=== PATIENT | female | born 1970 | race Asian ===

== ENCOUNTER 2021-01-06 11:08 | Observation (INO) ==
[2021-01-06] MEDS ORDERED: Clindamycin 900 MG/D5W BAG IVPB ONE (12:00)
[2021-01-06] MEDS ORDERED: oxyCODONE SR 10 mg TAB ONE (12:10)
[2021-01-06] MEDS ORDERED: Ondansetron 4 mg VIAL 2 MG/ML 2 ml VIAL ONE ×2 (12:10→15:45)
[2021-01-06] MEDS ORDERED: Lidocaine 1% VIAL 10 MG/ML VIAL ONE (12:37)
[2021-01-06] MEDS ORDERED: Heparin 2 UNITS/ML IVPREMIX 2,000 UNIT/1,000 ML BAG IV ONE (12:38)
[2021-01-06] MEDS ORDERED: Iohexol 350 (CONTRAST) 200 ML MDV IV ONE (13:01)
[2021-01-06] MEDS ORDERED: Heparin 2 UNITS/ML IVPREMIX 1,000 UNIT/500 ML BAG IV ONE (13:01)
[2021-01-06] MEDS ORDERED: nitroGLYCERIN DRIP 25,000 MCG/250 ML BTL ONE (13:04)
[2021-01-06] MEDS ORDERED: fentaNYL 250 mcg/5 ml 50 MCG/ML 5 ml VIAL (250 MCG) ONE (13:04)
[2021-01-06] MEDS ORDERED: Midazolam 5 mg/5 ml VIAL 1 mg/ml 5 ml VIAL (5 mg) ONE (13:04)
[2021-01-06 13:20] LABS: ABS Lymphocytes 1.5 10^3/ul (1.0-4.8); ABS Monocytes 0.4 10^3/ul (0-0.8); ABS Neutrophils 2.7 10^3/ul (1.5-7.7); Eosinophil % 0.2 %; Hematocrit 41 % (35-47); Hemoglobin 13.7 g/dL (12.0-16.0); Lymphocyte % 32.6 %; Mean Corpuscular HGB Conc 34 g/dL (31-36); Mean Corpuscular Hemoglobin 30 pg (27-31); Mean Corpuscular Volume 88 fL (80-97); Mean Platelet Volume 9.2 fL (7.4-10.4); Platelet Count 234 10^3/uL (150-450); Red Blood Count 4.66 10^6 /uL (3.70-4.87); Red Cell Distribution Width 13 % (10-15); White Blood Count 4.6 10^3/uL (3.5-10.8)
[2021-01-06 13:28] LABS: Activated Partial Thrombo Time 32.4 seconds (26.0-38.0); INR 1.03 (0.82-1.09)
[2021-01-06] MEDS ORDERED: HYDROmorphone 1 MG/1 ML SYRINGE ONE ×2 (14:22→14:42)
[2021-01-06] MEDS ORDERED: HYDROmorphone PCA 1 MG/ML Titrat per Protocol PCA SCH (15:00)
[2021-01-06] MEDS: NS 0.9% 1000 ml BAG 1,000 ML IV SCH ×2 (15:43→23:09)
[2021-01-06] MEDS: Ondansetron 4 mg VIAL 2 MG/ML 2 ml VIAL IV SCH ×2 (15:46→21:46)
[2021-01-06] MEDS ORDERED: Prochlorperazine 5 mg/ml 2 ml VIAL (10 mg) IV PRN (22:43)
[2021-01-07] MEDS: Ondansetron 4 mg VIAL 2 MG/ML 2 ml VIAL IV SCH (05:00)
[2021-01-07 08:00] VITALS: BP 105/65
[2021-01-07] MEDS ORDERED: HYDROcodone/ACETAMIN 5/325 mg TAB PO PRN (08:39)
[2021-01-07] MEDS ORDERED: Ketorolac 10 mg TAB (NF) PO SCH (09:00)
== END 2021-01-07 11:30 | disposition home or self-care (01) ==
LOC: CHICATH 11:08 → SSU 11:08
PROVIDERS: ADMIT Hospitalist; ATTEND Hospitalist
PROC: ANG.UFE (2021-01-06 12:10)